=== PATIENT | female | born 1975 | race Caucasian/White ===

== ENCOUNTER → 2016-06-05 | Outpatient (CLI) | payer OTHER ==
[2016-06-05 10:12] LABS: CH 31.9; HCT 41.4 % (34.0-46.0); HDW 2.36; HGB 13.6 gm/dL (11.4-16.0); MCH 31.8 pg (25.0-35.0); MCHC 32.8 g/dL (31.0-37.0); MCV 97.2 fL (80.0-100.0); Mean Platelet Volume 7.3; RBC 4.26 m/uL (3.80-5.40); RDW 13.1 % (11.5-15.5)
[2016-06-05 10:27] LABS: ALT 33 U/L (9-52); AST 23 U/L (14-36); Alkaline Phosphatase 66 U/L (38-126); Anion Gap 10 mmol/L; Blood Urea Nitrogen 10 mg/dL (7-17); Calcium 9.1 mg/dL (8.4-10.2); Carbon Dioxide 23 mmol/L (22-30); Chloride 110 mmol/L (98-107); Glucose 108 mg/dL (74-99); Non-African American GFR(MDRD) >60 (>60 ml/min/1.73 sqM); Potassium 4.3 mmol/L (3.5-5.1); Sodium 143 mmol/L (137-145); Total Bilirubin 0.5 mg/dL (0.2-1.3); Total Protein 6.8 g/dL (6.3-8.2)
[2016-06-05 20:10] LABS: Appearance,CSF Clear
[2016-06-09 13:46] LABS: Lyme Specimen Source Not Provided
[2016-06-10 14:19] LABS: Immunoglobulin G 715 mg/dL (700 - 1600)
== END ==
LOC: LABWHC1 09:19
PROVIDERS: ATTEND Psychiatry & Neurology Neurology
DX: R90.82 White matter disease, unspecified (principal); I65.29 Occlusion and stenosis of unspecified carotid artery
CPT/HCPCS: 36415; 80053; 82040; 82042; 82784; 83873; 83916; 84157; 85027; 87476; 88108; 89050

== ENCOUNTER → 2016-12-27 | Outpatient (CLI) | payer OTHER ==
--- NOTE | 2016-12-29 10:55 | MM ---
Reason for exam: screening (asymptomatic). Last mammogram was performed 1 year and 1 month ago. History: Patient had first child at age 32. Family history of breast cancer in paternal grandmother at age 75. Taking hormonal contraceptives for 6 years beginning at age 32. Physical Findings: A clinical breast exam by your physician is recommended on an annual basis and results should be correlated with mammographic findings. MG Screening Mammo w CAD Bilateral CC and MLO view(s) were taken. Prior study comparison: November 21, 2015, bilateral MG screening mammo w CAD. October 24, 2014, bilateral MG screening mammo w CAD. The breast tissue is heterogeneously dense. This may lower the sensitivity of mammography. Global asymmetry upper outer quadrant right breast is unchanged. No significant changes when compared with prior studies. ASSESSMENT: Negative, BI-RAD 1 RECOMMENDATION: Routine screening mammogram of both breasts in 1 year.
== END | disposition home or self-care (01) ==
LOC: RADMAMWWP 10:34
PROVIDERS: ATTEND Obstetrics & Gynecology
DX: Z12.31 Encounter for screening mammogram for malignant neoplasm of breast (principal)

== ENCOUNTER → 2017-06-23 | Outpatient (CLI) | payer OTHER ==
--- NOTE | 2017-06-23 08:02 | US ---
EXAMINATION TYPE: US abdomen complete DATE OF EXAM: 06/23/2017 COMPARISON: US 2009 CLINICAL HISTORY: R10.84 GENERALIZED ABD PAIN. Epigastric and RUQ pain, gallbladder surgically absent . EXAM MEASUREMENTS: Liver Length: 16.5 cm Gallbladder Wall: Surgically absent cm CBD: 0.4 cm Spleen: 11.3 cm Right Kidney: 11.3 x 4.6 x 5.1 cm Left Kidney: 11.9 x 6.4 x 4.9 cm Pancreas: not visualized due to midline bowel gas Liver: wnl Gallbladder: Surgically absent CBD: wnl Spleen: wnl Right Kidney: No hydronephrosis or masses seen Left Kidney: No hydronephrosis or masses seen Upper IVC: wnl Abd Aorta: wnl The liver is homogenous. The intrahepatic portion of the IVC and proximal abdominal aorta are within normal limits. The spleen is unremarkable. Kidneys are symmetric and free of hydronephrosis. No r enal lesions are seen. IMPRESSION: Nonvisualization of the pancreas and surgical absence of the gallbladder, otherwise unrem arkable abdominal ultrasound.
== END ==
LOC: RADUSWWP 06:43
PROVIDERS: ATTEND Internal Medicine
DX: R10.84 Generalized abdominal pain (principal); Z90.49 Acquired absence of other specified parts of digestive tract
CPT/HCPCS: 76700

== ENCOUNTER → 2018-01-23 | Outpatient (CLI) | payer OTHER ==
--- NOTE | 2018-01-25 13:43 | MM ---
Reason for exam: screening (asymptomatic). Last mammogram was performed 1 year and 1 month ago. History: Patient had first child at age 32. Family history of breast cancer in paternal grandmother at age 75. Taking hormonal contraceptives for 6 years beginning at age 32. Physical Findings: A clinical breast exam by your physician is recommended on an annual basis and results should be correlated with mammographic findings. MG Screening Mammo w CAD Bilateral CC and MLO view(s) were taken. Prior study comparison: December 27, 2016, bilateral MG screening mammo w CAD. November 21, 2015, bilateral MG screening mammo w CAD. The breast tissue is heterogeneously dense. This may lower the sensitivity of mammography. There is no discrete abnormality. No significant changes when compared with prior studies. ASSESSMENT: Negative, BI-RAD 1 RECOMMENDATION: Routine screening mammogram of both breasts in 1 year.
== END | disposition home or self-care (01) ==
LOC: RADMAMWWP 09:37
PROVIDERS: ATTEND Family Medicine
DX: Z12.31 Encounter for screening mammogram for malignant neoplasm of breast (principal)
CPT/HCPCS: 77067

== ENCOUNTER 2018-07-09 18:29 | Inpatient (IN) | payer OTHER ==
[2018-07-09] MEDS ORDERED: SODIUM CHLORIDE 0.9% 500 ML 500 ML IV ONE (18:36)
[2018-07-09 19:09] LABS: Anisocytosis Slight; Hypochromasia Marked; MCH 18.1 pg (25.0-35.0); MCHC 26.8 g/dL (31.0-37.0); MCV 67.4 fL (80.0-100.0); Mean Platelet Volume 9.5; Microcytosis Marked; Platelet Count 194 k/uL (150-450); Poikilocytosis Slight; RBC 2.66 m/uL (3.80-5.40); RDW 19.7 % (11.5-15.5); WBC 4.5 k/uL (3.8-10.6)
[2018-07-09 19:12] LABS: HCT 17.9 % (34.0-46.0); HGB 4.8 gm/dL (11.4-16.0)
[2018-07-09 19:16] LABS: ALT 25 U/L (9-52); AST 18 U/L (14-36); Albumin 3.2 g/dL (3.5-5.0); Alkaline Phosphatase 55 U/L (38-126); Anion Gap 6 mmol/L; Blood Urea Nitrogen 16 mg/dL (7-17); Calcium 8.3 mg/dL (8.4-10.2); Carbon Dioxide 19 mmol/L (22-30); Chloride 113 mmol/L (98-107); Glucose 99 mg/dL (74-99); Potassium 4.1 mmol/L (3.5-5.1); Sodium 138 mmol/L (137-145); Total Bilirubin 0.2 mg/dL (0.2-1.3); Total Protein 5.3 g/dL (6.3-8.2)
[2018-07-09] MEDS ORDERED: PANTOPRAZOLE 40 MG/10 ML VIAL IVP STA (19:29)
--- NOTE | 2018-07-09 19:43 | ED ---
Recheck HPI - General Chief Complaint: Recheck/Abnormal Lab/Rx Stated Complaint: abnormal labs Time Seen by Provider: 07/09/18 18:34 Source: patient Mode of arrival: ambulatory Limitations: no limitations - History of Present Illness Initial Comments: 42-year-old female with no past medical history presenting today for chief complaint of low hemoglobin. Patient states she was sent by primary care provider after obtaining labs for annual physical for low hemoglobin. She states she is unsure of the level. Patient denies any history of recent surgery , heavy vaginal bleeding, rectal bleeding melena. She denies history of peptic ulcer disease. Patient denies history of cancer. Patient states she has felt slightly short of breath, pale, and been experiencing cold intolerance. Patient denies abdominal pain headache, nausea vomiting dizziness.. Patient denies any use of blood thinners. Patient states she did have influenza about 3 weeks ago. Remaining review of systems negative, patient denies any recent fever, chills, shortness of breath, chest pain, back pain, numbness or tingling, dysuria or hematuria, constipation or diarrhea, visual changes, or any other complaints. upon arrival patient appears well no signs acute distress. HR 90 BP within acceptable limits. - Related Data Home Medications Medication Instructions Recorded Confirmed Acetaminophen [Tylenol Arthritis] 650 mg PO DAILY PRN 07/09/18 07/09/18 Azithromycin [Zithromax Z-pack] See Taper PO DIRECTED 07/09/18 07/09/18 Baclofen [Lioresal] 10 mg PO BID 07/09/18 07/09/18 Calcium/Magnesium/Zinc 1 tab PO DAILY 07/09/18 07/09/18 [Yfnwalv-Pbqqkxkgu-Jsgn Tablet] HYDROcodone/APAP 10-325MG [[place] 1.5 tab PO DAILY PRN 07/09/18 07/09/18 10-325] Loratadine [Claritin] 10 mg PO DAILY 07/09/18 07/09/18 Naproxen 500 mg PO BID PRN 07/09/18 07/09/18 Pregabalin [Lyrica] 150 mg PO DAILY 07/09/18 07/09/18 Topiramate [Topamax] 50 mg PO BID 07/09/18 07/09/18 Verapamil HCl [Verapamil ER] 120 mg PO DAILY 07/09/18 07/09/18 medroxyPROGESTERone [Depo-Provera] 150 mg IM Q90D 07/09/18 07/09/18 Allergies Allergy/AdvReac Type Severity Reaction Status Date / Time No Known Allergies Allergy Verified 07/09/18 18:47 Review of Systems ROS Statement: Those systems with pertinent positive or pertinent negative responses have been documented in the HPI. ROS Other: All systems not noted in ROS Statement are negative. Past Medical History Additional Past Medical History / Comment(s): migraines, back pain Past Surgical History: Cholecystectomy Additional Past Surgical History / Comment(s): carpal tunnel, eye Past Psychological History: No Psychological Hx Reported Smoking Status: Never smoker Past Alcohol Use History: Occasional Past Drug Use History: None Reported General Exam - General Exam Comments Initial Comments: General: The patient is awake and alert, in no distress. Appears pale. Eye: +3 mm pupils are equal, round and reactive to light, extra-ocular movements are intact. No nystagmus. There is normal conjunctiva bilaterally. No signs of icterus. Ears, nose, mouth and throat: There are moist mucous membranes and no oral lesions. Pallor of mucous membranes. Neck: The neck is supple, there is no tenderness or JVD. Cardiovascular: There is a regular rate and rhythm. No murmur, rub or gallop is appreciated. Respiratory: Lungs are clear to auscultation, respirations are non-labored, breath sounds are equal. No wheezes, stridor, rales, or rhonchi. Gastrointestinal: Soft, non-distended, non-tender abdomen without masses or organomegaly noted. There is no rebound or guarding present. No CVA tenderness. Bowel sounds are unremarkable. No gross blood on rectal exam. Musculoskeletal: Normal ROM, no tenderness. Strength 5/5. Sensation intact. Radial pulses equal bilaterally 2+. Neurological: A&O x 3. CN II-XII intact, There are no obvious motor or sensory deficits. Coordination appears grossly intact. Speech is normal. Skin: Skin is warm and dry and no rashes or lesions are noted. Psychiatric: Cooperative, appropriate mood & affect, normal judgment. Limitations: no limitations Course Vital Signs 07/09/18 07/09/18 07/09/18 18:30 20:18 20:28 Temperature 98.6 F 98.5 F 98.8 F Pulse Rate 90 79 81 Respiratory 18 16 16 Rate Blood Pressure 139/68 114/68 111/66 O2 Sat by Pulse 100 Oximetry 07/09/18 20:58 Temperature 98.8 F Pulse Rate 86 Respiratory 16 Rate Blood Pressure 120/71 O2 Sat by Pulse Oximetry Medical Decision Making - Medical Decision Making 42-year-old female presenting for low hemoglobin. Patient sent by primary care provider after having labs drawn for annual physical. Patient states she has noticed increasing dyspnea cold intolerance as well as pallor. Patient hemoglobin 4.7. Patient was given 2 units of red blood cells after type and screen. Patient remains hemodynamically stable. There is no obvious source upon history taking for patient's bleeding. Patient denies vaginal bleeding recent surgeries melena or hematochezia. Occult blood negative. Patient denies any source of the pain. Patient denies anticoagulation use. Patient did have history of influenza 3 weeks prior however there is no pancytopenia. At this ti wv patient will be admitted for further evaluation of anemia. At this time source of low hemoglobin is not identified. Hematology oncology was consult and. Dr. Wong accepted admission. Patient was resumed on home medications. Patient was given IV fluids in the emergency department. I had discussed the case attending provider Dr. Alvarez who spoke with Dr. Wong who is agreeable patient care plan as well as admission at this time. - Lab Data Result diagrams: 07/09/18 18:59 07/09/18 18:59 Lab Results 07/09/18 07/09/18 07/09/18 Range/Units 18:51 18:59 18:59 WBC 4.5 (3.8-10.6) k/uL RBC 2.66 L (3.80-5.40) m/uL Hgb 4.8 L* (11.4-16.0) gm/dL Hct 17.9 L* (34.0-46.0) % MCV 67.4 L (80.0-100.0) fL MCH 18.1 L (25.0-35.0) pg MCHC 26.8 L (31.0-37.0) g/dL RDW 19.7 H (11.5-15.5) % Plt Count 194 (150-450) k/uL Neutrophils % ASSET ADMINISTRATOR Neutrophils % (Manual) 71 % Lymphocytes % ASSET ADMINISTRATOR Lymphocytes % (Manual) 14 % Monocytes % ASSET ADMINISTRATOR Monocytes % (Manual) 8 % Eosinophils % ASSET ADMINISTRATOR Eosinophils % (Manual) 7 % Basophils % ASSET ADMINISTRATOR Neutrophils # ASSET ADMINISTRATOR Neutrophils # (Manual) 3.20 (1.3-7.7) k/uL Lymphocytes # ASSET ADMINISTRATOR Lymphocytes # (Manual) 0.63 L (1.0-4.8) k/uL Monocytes # ASSET ADMINISTRATOR Monocytes # (Manual) 0.36 (0-1.0) k/uL Eosinophils # ASSET ADMINISTRATOR Eosinophils # (Manual) 0.32 (0-0.7) k/uL Basophils # ASSET ADMINISTRATOR Nucleated RBCs 0 (0-0) /100 WBC Manual Slide Review Performed Hypochromasia Marked Hypochromasia (manual) Present Poikilocytosis Slight Poikilocytosis (manual Present Anisocytosis Slight Anisocytosis (manual) Present Microcytosis Marked Tear Drop Cells Present PT (9.0-12.0) sec INR (<1.2) APTT (22.0-30.0) sec Sodium 138 (137-145) mmol/L Potassium 4.1 (3.5-5.1) mmol/L Chloride 113 H (98-107) mmol/L Carbon Dioxide 19 L (22-30) mmol/L Anion Gap 6 mmol/L BUN 16 (7-17) mg/dL Creatinine 0.81 (0.52-1.04) mg/dL Est GFR (CKD-EPI)AfAm >90 (>60 ml/min/1.73 sqM) Est GFR (CKD-EPI)NonAf 89 (>60 ml/min/1.73 sqM) Glucose 99 (74-99) mg/dL Calcium 8.3 L (8.4-10.2) mg/dL Total Bilirubin 0.2 (0.2-1.3) mg/dL AST 18 (14-36) U/L ALT 25 (9-52) U/L Alkaline Phosphatase 55 (38-126) U/L Total Protein 5.3 L (6.3-8.2) g/dL Albumin 3.2 L (3.5-5.0) g/dL Stool Occult Blood (Negative) Blood Type A Positive Blood Type Recheck No Antibody Screen NEGATIVE Crossmatch See Detail Spec Expiration Date 07/12/2018 - 233407/09/18 07/09/18 Range/Units 18:59 19:15 WBC (3.8-10.6) k/uL RBC (3.80-5.40) m/uL Hgb (11.4-16.0) gm/dL Hct (34.0-46.0) % MCV (80.0-100.0) fL MCH (25.0-35.0) pg MCHC (31.0-37.0) g/dL RDW (11.5-15.5) % Plt Count (150-450) k/uL Neutrophils % Neutrophils % (Manual) % Lymphocytes % Lymphocytes % (Manual) % Monocytes % Monocytes % (Manual) % Eosinophils % Eosinophils % (Manual) % Basophils % Neutrophils # Neutrophils # (Manual) (1.3-7.7) k/uL Lymphocytes # Lymphocytes # (Manual) (1.0-4.8) k/uL Monocytes # Monocytes # (Manual) (0-1.0) k/uL Eosinophils # Eosinophils # (Manual) (0-0.7) k/uL Basophils # Nucleated RBCs (0-0) /100 WBC Manual Slide Review Hypochromasia Hypochromasia (manual) Poikilocytosis Poikilocytosis (manual Anisocytosis Anisocytosis (manual) Microcytosis Tear Drop Cells PT 10.1 (9.0-12.0) sec INR 0.9 (<1.2) APTT 21.5 L (22.0-30.0) sec Sodium (137-145) mmol/L Potassium (3.5-5.1) mmol/L Chloride (98-107) mmol/L Carbon Dioxide (22-30) mmol/L Anion Gap mmol/L BUN (7-17) mg/dL Creatinine (0.52-1.04) mg/dL Est GFR (CKD-EPI)AfAm (>60 ml/min/1.73 sqM) Est GFR (CKD-EPI)NonAf (>60 ml/min/1.73 sqM) Glucose (74-99) mg/dL Calcium (8.4-10.2) mg/dL Total Bilirubin (0.2-1.3) mg/dL AST (14-36) U/L ALT (9-52) U/L Alkaline Phosphatase (38-126) U/L Total Protein (6.3-8.2) g/dL Albumin (3.5-5.0) g/dL Stool Occult Blood Negative (Negative) Blood Type Blood Type Recheck Antibody Screen Crosswitch Spec Expiration Date Disposition Clinical Impression: Anemia, Hemoglobin low Disposition: HOME SELF-CARE Condition: Stable Is patient prescribed a controlled substance at d/c from ED?: No Referrals: Josue Wong MD [Primary Care Provider] - 1-2 days Time of Disposition: 20:05 Decision to Admit Reason: Admit from EC Decision Date: 07/09/18 Decision Time: 20:05
[2018-07-09] MEDS ORDERED: NALOXONE 0.4 MG/ML 1 ML VIAL IV PRN (20:02)
[2018-07-09 20:14] LABS: INR 0.9 (<1.2); Prothrombin Time 10.1 sec (9.0-12.0)
[2018-07-09] MEDS: SODIUM CHLORIDE 0.9% 1,000 ML IV SCH (20:15)
[2018-07-09 20:18] LABS: Eosinophils # (M) 0.32 k/uL (0-0.7); Lymphocytes # (M) 0.63 k/uL (1.0-4.8); Monocytes # (M) 0.36 k/uL (0-1.0); Neutrophils % (M) 71 %; Nucleated Red Blood Cells 0 /100 WBC (0-0); Total Cells Counted 100
[2018-07-09 20:19] LABS: Anisocytosis (M) Present; Hypochromasia (M) Present; Poikilocytosis (M) Present; Tear Drop Cells Present
[2018-07-09 20:45] LABS: Partial Thromboplastin Time 21.5 sec (22.0-30.0)
[2018-07-09] MEDS ORDERED: HYDROcodone/APAP 10-325MG 1 EACH TAB PO PRN (21:34)
[2018-07-09 23:22] VITALS: BMI 32.1
[2018-07-10 06:43] LABS: Anisocytosis Moderate; Basophils % (A) 1 %; Eosinophils # (A) 0.3 k/uL (0-0.7); Eosinophils % (A) 7 %; HCT 20.8 % (34.0-46.0); Hypochromasia Marked; Lymphocytes # (A) 1.2 k/uL (1.0-4.8); Lymphocytes % (A) 29 %; MCH 21.8 pg (25.0-35.0); Microcytosis Moderate; Monocytes # (A) 0.2 k/uL (0-1.0); Monocytes % (A) 5 %; Neutrophils # (A) 2.3 k/uL (1.3-7.7); Neutrophils % (A) 55 %; Platelet Count 138 k/uL (150-450); Poikilocytosis Marked; RBC 2.77 m/uL (3.80-5.40); RDW 20.1 % (11.5-15.5); WBC 4.2 k/uL (3.8-10.6)
[2018-07-10] MEDS: SODIUM CHLORIDE 0.9% 1,000 ML IV SCH ×2 (06:44→10:13)
[2018-07-10 06:55] LABS: MCV 75.1 fL (80.0-100.0)
[2018-07-10] MEDS ORDERED: PANTOPRAZOLE 40 MG/10 ML VIAL IV SCH (09:00)
[2018-07-10] MEDS ORDERED: LORATADINE 10 MG TAB PO SCH (09:00)
[2018-07-10] MEDS ORDERED: BACLOFEN 10 MG TAB PO SCH (09:00)
[2018-07-10] MEDS ORDERED: VERAPAMIL SR 120 MG TABLET.ER PO SCH (09:00)
[2018-07-10] MEDS ORDERED: AZITHROMYCIN 250 MG TAB PO SCH (09:00)
[2018-07-10 12:21] LABS: Reticulocyte % 2.6 % (0.5-2.0)
[2018-07-10 13:20] VITALS: TEMP 98.3
[2018-07-10 15:14] VITALS: PULSE 67; RESP 14
[2018-07-10 15:15] VITALS: BP 98/58
--- NOTE | 2018-07-10 15:21 | P.PN ---
Progress Note - Text Consult dictated Impression: 1- Profound, minimally symptomatic, microcytic anemia> likely 2nd to chronic iron deficiency > The patient is hemodynamically stable , even at presentation with HGB of 4.8 indicating chronic process 2- Suspect chronic Gi blood loss despite negative stools for OB study 3- Primary Hematologic process not suspected Rec: 1- Discussed iron deficiency anemia with suspected chronic blood loss with patient 2- The patient is stable to be discharged 3- IV iron supplement will be started within few days of discharge 4- Out-patient GI work up will be arranged Answered all questions/concerns D/W Internal medicine team
--- NOTE | 2018-07-10 16:43 | CONS ---
CONSULTATION DATE OF CONSULTATION: 07/10/2018. REASON FOR CONSULTATION: Severe anemia. HISTORY OF ILLNESS: Yenny is a 42-year-old female with no knowledge of prior hematologic abnormalities. She presented to the hospital after she was being told by Dr. Wong's office to report to the emergency room due to severe anemia. 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 The day before she was seen at Dr. Wong's office and CBC revealed a hemoglobin of 4.8. The patient denied any knowledge of prior hematologic abnormality. She has felt very slight fatigue. She denies any obvious blood loss. No melena, hematochezia, gross hematuria or hematemesis. The patient reported having only 1 or 2 menstrual cycles per year due to being on Depo-Provera, mainly to control menstrual cycles and contraception. Upon arrival to the hospital, the patient was found to have a hemoglobin of 4.8, WBC of 4.5, MCV of 67.4, RDW of 19.7, and platelet count 194,000. She was given 2 units of packed red blood cells. Hemoglobin increased to 6.0 today, WBC was 4.2, and platelet count 139,000. Her chemistry was mostly within normal limits. The patient stool for occult blood study was negative. When she was seen today, Yenny again reported feeling well. She denies any chest pain or shortness of breath. Again, no signs of symptom blood loss. She reported being totally asymptomatic. PAST MEDICAL HISTORY: 1. Migraine headaches. 2. Chronic low back pain. 3. Prior history of irregular menstruation, but none recently. CURRENT MEDICATION: Current medications including Bells, baclofen, verapamil, Protonix, and Naprosyn. ALLERGIES: The patient denies any medication allergies. SOCIAL HISTORY: Yenny is a lifetime nonsmoker. Denies any use of alcohol. 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 She has one 9-year-old healthy child. FAMILY HISTORY: Family history was unremarkable for any prior hematologic disorders. PHYSICAL EXAMINATION: On examination, the patient appeared alert and oriented. Skin is warm and dry. Slightly pale, but nonicteric. Hair distribution within normal for age and gender. Blood pressure was 98/62, pulse was 67 and regular, respiratory rate was 14 and not labored. Temperature was 98.3. There were no pathologic cervical supraclavicular, infraclavicular, or axillary lymphadenopathy. Trachea was midline. Chest was clear with good air exchange bilaterally. Heart sounds were normal S1 and S2. There was no S3, rubs, or murmurs auscultated. Abdomen was soft. The liver and spleen were not clinically palpable. No masses tenderness or inguinal lymphadenopathy. Extremities appears to be grossly unremarkable. Range of motion was within normal. No deformity seen. Neurologic examination showed no focal motor or sensory deficits. Cranial nerves II through XII are unremarkable. IMPRESSION: 1. Profound and minimally symptomatic microcytic anemia, strongly suspecting a chronic iron deficiency due to chronic blood loss. The chronicity of her condition obvious with the lack of symptoms, lack of tachycardia at presentation and profound microcytosis which develops over at least 6 to 12 months if not 2 or 3 years. 2. Suspected chronic gastrointestinal blood loss despite negative stool for occult blood study done at the hospital. 3. History of migraine headache and back pain. She was on analgesics including Naprosyn prescribed by Dr. Loya. 4. Primary hematologic disorder is strongly doubtful. RECOMMENDATION: 1. I discussed chronic anemia chronic microcytic iron deficiency anemia with the patient at length. 2. Discussed suspected blood loss, likely chronic GI in origin. 3. I would not recommend any further supportive blood transfusion. 4. The patient is stable to be discharged home. 5. Parenteral iron infusion will be started within 1 or 2 days from discharge. 6. GI workup will be arranged after iron infusion completed. 7. Avoid nonsteroidal antiinflammatories and stop Naprosyn. I answered the patient's questions and concerns to her satisfaction. I will follow the patient after discharge for parenteral iron infusion. Thank you for asking us the privilege to participate in the care of Ms. Bruner. MMODL / IJN: [id number] /
[2018-07-10 17:12] LABS: Folate, Serum 7.8 ng/mL
[2018-07-10 17:18] LABS: Iron Saturation 2.36 (12.00-45.00)
--- NOTE | 2018-07-10 23:18 | P.HPIM ---
History of Present Illness H&P Date: 07/10/18 Chief Complaint: Low hemoglobin Patient is a 42-year-old female with a known history of chronic migraine headaches, chronic back pain and gestational diabetes mellitus came to ER with complaints of low hemoglobin. Patient had recent lab workup done in PCPs office., Was found to have hemoglobin level of 4. Patient was called to go to ER for further evaluation. Otherwise patient denied any complaints of chest pain. Patient does have shortness of breath recently with slightly stairs. Denied any shortness of breath with walking. Denied any hematemesis or melena or hematochezia. No prior history of GI bleed. FOBT is negative. Denied any recent surgery, heavy vaginal bleeding or rectal bleeding. No history of peptic ulcer disease. Patient has been pale looking as per her mother at bedside. Patient says that she had influenza about 3 weeks ago and is also being treated for bronchitis with azithromycin. Denied any fever or chills. No cough or sputum production. No leg swelling. No chest pain. No numbness or tingling. No hematuria or dysuria. No visual changes. Hemoglobin 4.8 on admission. hypochromic. Iron profile showed deficiency with ferritin level II.6 Review of Systems Constitutional: Patient denies any fever or chills . No generalized weakness or weight loss. Abdomen: Patient denied nausea vomiting and diarrhea and abdominal pain. Cardiovascular: Patient denies any chest pain or short of breath no palpitations. Exertional shortness of breath Respiratory: patient denied any cough is from production. No shortness of breath Neurologic: Patient denied any numbness or tingling headache. Musculoskeletal: Patient denies any complaints of joint swelling or deformity. Skin: Negative Psychiatric: Negative Endocrine: No heat or cold intolerance. No recent weight gain. Genitourinary: No dysuria or hematuria. All other 14 point ROS negative except the above Past Medical History Past Medical History: Diabetes Mellitus Additional Past Medical History / Comment(s): migraines, back pain, gestational DM History of Any Multi-Drug Resistant Organisms: None Reported Past Surgical History: Cholecystectomy Additional Past Surgical History / Comment(s): carpal tunnel, eye surgery Past Anesthesia/Blood Transfusion Reactions: Postoperative Nausea & Vomiting (PONV) Past Psychological History: No Psychological Hx Reported Smoking Status: Never smoker Past Alcohol Use History: Occasional Past Drug Use History: None Reported Medications and Allergies Home Medications Medication Instructions Recorded Confirmed Type Acetaminophen [Tylenol Arthritis] 650 mg PO DAILY PRN 07/09/18 07/09/18 History Azithromycin [Zithromax Z-pack] See Taper PO DIRECTED 07/09/18 07/09/18 History Baclofen [Lioresal] 10 mg PO BID 07/09/18 07/09/18 History Calcium/Magnesium/Zinc 1 tab PO DAILY 07/09/18 07/09/18 History [Nebnezb-Utpnfdxbt-Drxw Tablet] HYDROcodone/APAP 10-325MG [[place] 1.5 tab PO DAILY PRN 07/09/18 07/09/18 History 10-325] Loratadine [Claritin] 10 mg PO DAILY 07/09/18 07/09/18 History Pregabalin [Lyrica] 150 mg PO DAILY 07/09/18 07/09/18 History Topiramate [Topamax] 50 mg PO BID 07/09/18 07/09/18 History Verapamil HCl [Verapamil ER] 120 mg PO DAILY 07/09/18 07/09/18 History medroxyPROGESTERone [Depo-Provera] 150 mg IM Q90D 07/09/18 07/09/18 History Allergies Allergy/AdvReac Type Severity Reaction Status Date / Time No Known Allergies Allergy Verified 07/09/18 18:47 Physical Exam Vitals: Vital Signs Temp Pulse Pulse Resp BP BP Pulse Ox 07/10/18 15:13 98.3 F 67 14 98/62 07/10/18 12:00 98.3 F 67 14 98/58 96 07/10/18 11:12 98.3 F 71 12 97/58 07/10/18 10:42 98.3 F 71 12 96/55 07/10/18 10:32 98.6 F 71 14 109/72 07/10/18 08:00 98.3 F 67 14 98/57 97 07/10/18 04:00 98.3 F 70 16 91/50 100 07/10/18 02:54 98.3 F 70 18 91/50 100 07/10/18 00:40 98.3 F 77 16 103/67 97 07/10/18 00:39 98.3 F 77 16 103/67 97 07/10/18 00:09 97.9 F 83 18 107/68 98 07/10/18 00:00 98.3 F 77 16 103/67 97 04/19/19 23:59 98.6 F 86 18 108/65 07/09/18 22:49 98.8 F 85 18 127/75 100 07/09/18 22:40 98.9 F 89 16 118/72 07/09/18 20:58 98.8 F 86 16 120/71 07/09/18 20:28 98.8 F 81 16 111/66 07/09/18 20:18 98.5 F 79 16 114/68 07/09/18 18:30 98.6 F 90 18 139/68 100 Intake and Output 07/10/18 07/10/18 07/10/18 06:59 14:59 22:59 Intake Total 910 1580 Balance 910 1580 Intake: Intake, IV Titration 600 600 Amount Sodium Chloride 0.9% 1, 600 600 000 ml @ 100 mls/hr IV . Q10H [facility] Rx#:[id number] Oral 360 Blood Product 310 620 Rc As-1 Unit 310 [id number] Rc As-3 Unit 310 [id number] Other: Voiding Method Toilet Toilet # Voids 1 Weight 90.1 kg PHYSICAL EXAMINATION: Patient is lying in the bed comfortably, no acute distress, awake alert and oriented.. HEENT: Normocephalic. Neck is supple. Pupils reactive. Conjunctival pallor. Nostrils clear. Oral cavity is moist. Ears reveal no drainage. Neck reveals no JVD, carotid bruits, or thyromegaly. CHEST EXAMINATION: Trachea is central. Symmetrical expansion. Lung barrow clear to auscultation and percussion. CARDIAC: Normal S1, S2 with no gallops. No murmurs ABDOMEN: Soft. Bowel sounds normal. No organomegaly. No abdominal bruits. Extremities: reveal no edema. No clubbing or cyanosis Neurologically awake, alert, oriented x3 with well-coordinated movements. No focal deficits noted Skin: No rash or skin lesions. Psychiatric: Coperative. Nonsuicidal Musculoskeletal: No joint swelling or deformity. Normal range of motion. Results CBC & Chem 7: 07/10/18 05:59 07/09/18 18:59 Labs: Abnormal Lab Results - Last 24 Hours (Table) 07/09/18 07/09/18 07/09/18 Range/Units 18:51 18:59 18:59 RBC 2.66 L (3.80-5.40) m/uL Hgb 4.8 L* (11.4-16.0) gm/dL Hct 17.9 L* (34.0-46.0) % MCV 67.4 L (80.0-100.0) fL MCH 18.1 L (25.0-35.0) pg MCHC 26.8 L (31.0-37.0) g/dL RDW 19.7 H (11.5-15.5) % Plt Count (150-450) k/uL Lymphocytes # (Manual) 0.63 L (1.0-4.8) k/uL Retic Count (0.5-2.0) % APTT (22.0-30.0) sec Chloride 113 H (98-107) mmol/L Carbon Dioxide 19 L (22-30) mmol/L Calcium 8.3 L (8.4-10.2) mg/dL Total Protein 5.3 L (6.3-8.2) g/dL Albumin 3.2 L (3.5-5.0) g/dL Crossmatch See Detail 07/09/18 07/10/18 07/10/18 Range/Units 18:59 05:59 05:59 RBC 2.77 L (3.80-5.40) m/uL Hgb 6.0 L* (11.4-16.0) gm/dL Hct 20.8 L (34.0-46.0) % MCV 75.1 L D (80.0-100.0) fL MCH 21.8 L (25.0-35.0) pg MCHC 29.0 L (31.0-37.0) g/dL RDW 20.1 H (11.5-15.5) % Plt Count 138 L (150-450) k/uL Lymphocytes # (Manual) (1.0-4.8) k/uL Retic Count 2.6 H (0.5-2.0) % APTT 21.5 L (22.0-30.0) sec Chloride (98-107) mmol/L Carbon Dioxide (22-30) mmol/L Calcium (8.4-10.2) mg/dL Total Protein (6.3-8.2) g/dL Albumin (3.5-5.0) g/dL Crossmatch Thrombosis Risk Factor Assmnt - DVT/VTE Prophylaxis DVT/VTE Prophylaxis: Mechanical Prophylaxis ordered - Choose All That Apply Any of the Below Risk Factors Present?: Yes Each Factor Represents 1 point: Age 41-60 years Other Risk Factors: No Other congenital or acquired thrombophilia - If yes, enter type in comment: No Thrombosis Risk Factor Assessment Total Risk Factor Score: 1 Thrombosis Risk Factor Assessment Level: Low Risk Assessment and Plan Assessment: Profound anemia with minimal symptomatic. Hemoglobin 4.8 status post 1 unit PRBC transfusion Microcytic iron deficiency anemia Suspect chronic GI bleed despite negative FOBT Chronic migraine headaches Chronic back pain History of gestational diabetes mellitus Obesity with BMI 32.1 DVT prophylaxis with SCDs And plan: Plan: Patient is status post 1 unit PRBC transfusion. Continue to monitor H&H. Hematology was consulted for evaluation. Patient is iron deficient with low ferritin level. IV iron supplement will be arranged as an outpatient as per rheumatology. Outpatient GI workup and hematology follow-up. Currently patient is hemodynamically stable. Patient wants to be discharged home. Time with Patient: Greater than 30
--- NOTE | 2018-07-10 23:19 | P.DS ---
Providers Date of admission: 07/09/18 22:00 Expected date of discharge: 07/10/18 Attending physician: Josue Wong Consults: 07/09/18 20:02 Consult Physician Routine Consulting Provider: Feng Naqvi Consult Reason/Comments: anemia, HgB 4.7 unknown orgin Do you want consulting provider notified?: Yes, Notify in am Primary care physician: Josue Wong Hospital Course: Discharge diagnosis Profound anemia with minimal symptomatic. Hemoglobin 4.8 status post 1 unit PRBC transfusion Microcytic iron deficiency anemia Suspect chronic GI bleed despite negative FOBT Chronic migraine headaches Chronic back pain History of gestational diabetes mellitus Obesity with BMI 32.1 DVT prophylaxis with SCDs And plan: Hospital course Patient is a 42-year-old female with a known history of chronic migraine headaches, chronic back pain and gestational diabetes mellitus came to ER with complaints of low hemoglobin. Patient had recent lab workup done in PCPs office., Was found to have hemoglobin level of 4. Patient was called to go to ER for further evaluation. Otherwise patient denied any complaints of chest pain. Patient does have shortness of breath recently with slightly stairs. Denied any shortness of breath with walking. Denied any hematemesis or melena or hematochezia. No prior history of GI bleed. FOBT is negative. Denied any recent surgery, heavy vaginal bleeding or rectal bleeding. No history of peptic ulcer disease. Patient has been pale looking as per her mother at bedside. Patient says that she had influenza about 3 weeks ago and is also being treated for bronchitis with azithromycin. Denied any fever or chills. No cough or sputum production. No leg swelling. No chest pain. No numbness or tingling. No hematuria or dysuria. No visual changes. Hemoglobin 4.8 on admission. hypochromic. Iron profile showed deficiency with ferritin level II.6 Patient is status post 1 unit PRBC transfusion. Continued to monitor H&H. Hemoglobin went up to 6.0. Patient denied any complaints of chest pain or shortness of breath. Hematology was consulted for evaluation. Patient is iron deficient with low ferritin level. IV iron supplement will be arranged as an outpatient as per rheumatology. Outpatient GI workup and hematology follow-up. Currently patient is hemodynamically stable. Patient wants to be discharged home. Discharge physical examination was done and vitals reviewed. Vital Signs - 24 hr 07/09/18 07/10/1819 23:59 00:00 00:09 Temperature 98.6 F 98.3 F 97.9 F Pulse Rate 86 83 Pulse Rate [ 77 Pulse Oximetery ] Respiratory 18 16 18 Rate Blood Pressure 108/65 107/68 Blood Pressure 103/67 [Right Arm] O2 Sat by Pulse 97 98 Oximetry 07/10/18 07/10/18 07/10/18 00:39 00:40 02:54 Temperature 98.3 F 98.3 F 98.3 F Pulse Rate 77 77 70 Pulse Rate [ Pulse Oximetery ] Respiratory 16 16 18 Rate Blood Pressure 103/67 103/67 91/50 Blood Pressure [Right Arm] O2 Sat by Pulse 97 97 100 Oximetry 07/10/18 07/10/18 07/10/18 04:00 08:00 10:32 Temperature 98.3 F 98.3 F 98.6 F Pulse Rate 71 Pulse Rate [ 70 67 Pulse Oximetery ] Respiratory 16 14 14 Rate Blood Pressure 109/72 Blood Pressure 91/50 98/57 [Right Arm] O2 Sat by Pulse 100 97 Oximetry 07/10/18 07/10/18 07/10/18 10:42 11:12 12:00 Temperature 98.3 F 98.3 F 98.3 F Pulse Rate 71 71 Pulse Rate [ 67 Pulse Oximetery ] Respiratory 12 12 14 Rate Blood Pressure 96/55 97/58 Blood Pressure 98/58 [Right Arm] O2 Sat by Pulse 96 Oximetry 07/10/18 15:13 Temperature 98.3 F Pulse Rate 67 Pulse Rate [ Pulse Oximetery ] Respiratory 14 Rate Blood Pressure 98/62 Blood Pressure [Right Arm] O2 Sat by Pulse Oximetry Patient Condition at Discharge: Stable Plan - Discharge Summary Discharge Rx Participant: No New Discharge Prescriptions: Continue Acetaminophen [Tylenol Arthritis] 650 mg PO DAILY PRN PRN Reason: Pain medroxyPROGESTERone [Depo-Provera] 150 mg IM Q90D Topiramate [Topamax] 50 mg PO BID Loratadine [Claritin] 10 mg PO DAILY Calcium/Magnesium/Zinc [Fgztulc-Rjnmutbsv-Wyqw Tablet] 1 tab PO DAILY Azithromycin [Zithromax Z-pack] See Taper PO DIRECTED HYDROcodone/APAP 10-325MG [[place] 10-325] 1.5 tab PO DAILY PRN PRN Reason: Pain Baclofen [Lioresal] 10 mg PO BID Verapamil HCl [Verapamil ER] 120 mg PO DAILY Pregabalin [Lyrica] 150 mg PO DAILY Discontinued Naproxen 500 mg PO BID PRN PRN Reason: Pain Discharge Medication List Acetaminophen [Tylenol Arthritis] 650 mg PO DAILY PRN 07/09/18 [History] Azithromycin [Zithromax Z-pack] See Taper PO DIRECTED 07/09/18 [History] Baclofen [Lioresal] 10 mg PO BID 07/09/18 [History] Calcium/Magnesium/Zinc [Pkxsjkw-Djqxbmeqt-Lvwd Tablet] 1 tab PO DAILY 07/09/18 [History] HYDROcodone/APAP 10-325MG [[place] 10-325] 1.5 tab PO DAILY PRN 07/09/18 [History] Loratadine [Claritin] 10 mg PO DAILY 07/09/18 [History] Pregabalin [Lyrica] 150 mg PO DAILY 07/09/18 [History] Topiramate [Topamax] 50 mg PO BID 07/09/18 [History] Verapamil HCl [Verapamil ER] 120 mg PO DAILY 07/09/18 [History] medroxyPROGESTERone [Depo-Provera] 150 mg IM Q90D 07/09/18 [History] Follow up Appointment(s)/Referral(s): Josue Wong MD [Primary Care Provider] - 1-2 days (please call the office on Thursday for an appointment) Markus Swan MD [STAFF PHYSICIAN] - 1 Week (please call the office Thursday for appointment) Patient Instructions/Handouts: Iron Rich Diet (DC), Anemia (DC) Discharge Disposition: HOME SELF-CARE
[2018-07-11] MEDS ORDERED: PANTOPRAZOLE 40 MG TABLET PO SCH (09:00)
== END 2018-07-10 16:41 | disposition home or self-care (01) | DRG 812 ==
LOC: EC 18:29 → 3SCARD 22:00
PROVIDERS: ADMIT Family Medicine; ATTEND Family Medicine
PROC: 30233N1 Transfusion of Nonautologous Red Blood Cells into Peripheral Vein, Percutaneous Approach (ICD-10-PCS; principal; 2018-07-09)
DX: D50.0 Iron deficiency anemia secondary to blood loss (chronic) (principal); K92.2 Gastrointestinal hemorrhage, unspecified; E66.9 Obesity, unspecified; G43.909 Migraine, unspecified, not intractable, without status migrainosus; G89.29 Other chronic pain; M54.5 Low back pain; Z68.32 Body mass index [BMI] 32.0-32.9, adult; Z79.899 Other long term (current) drug therapy; Z86.32 Personal history of gestational diabetes; Z90.49 Acquired absence of other specified parts of digestive tract
CPT/HCPCS: 36415; 80053; 82272; 82607; 82728; 82746; 83540; 83550; 83615; 85025; 85045; 85610; 85730; 86850; 86900; 86901; 86920; 96361; 96374; 99284

== ENCOUNTER 2018-08-13 11:30 | Day surgery (SDC) | payer OTHER ==
[2018-08-10 14:18] VITALS: BMI 32.4
[~2018-08-13 11:30] MED LIST: LACTATED RINGERS 1,000 ML IV SCH
[2018-08-13 11:46] VITALS: RESP 16; TEMP 98.2
[2018-08-13] MEDS ORDERED: LIDOCAINE 1% 20 ML VIAL (10MG/ML) FOR IV START INTRADERMA ONE (11:51)
[2018-08-13] MEDS ORDERED: PROPOFOL 10 MG/ML 20 ML VIAL IV ONE (12:21)
[2018-08-13] MEDS ORDERED: MIDAZOLAM 2 MG/2 ML VIAL ONE (12:21)
[2018-08-13] MEDS ORDERED: fentaNYL (PF) 50 MCG/ML 2 ML AMP ONE (12:21)
[2018-08-13] MEDS ORDERED: LIDOCAINE 1% INJ 10MG/ML (20 ML MDV) ONE (12:21)
--- NOTE | 2018-08-13 12:55 | P.PCN ---
Date of Procedure: 08/13/18 Procedure(s) Performed: Brief history: Patient is a pleasant 42-year-old white female, scheduled for an elective upper endoscopy as well as colonoscopy as a part of evaluation of severe anemia. She was recently noted to have a hemoglobin of 4 and hence transfusion. Denies any GI symptoms. Procedure performed: Esophagogastroduodenoscopy with biopsy Colonoscopy Preoperative diagnosis: Severe iron deficiency anemia Anesthesia: MAC Procedure: After informed consent was obtained from the patient was brought into the endoscopy unit and IV sedation was administered by anesthesia under continuous monitoring. Initially upper endoscopy was done. The Olympus GF 160 video endoscope was inserted inserted into the mouth and esophagus intubated without any difficulty and was gradually advanced into the stomach and duodenum and carefully examined. The bulb and second part of the duodenum had scalloping of the mucosa with some positivity of the duodenal folds suspicious for celiac disease and multiple biopsies were done from this area. The scope was then withdrawn into the stomach adequately insufflated with air and upon careful examination the antrum had mild gastritis and biopsies were done from this area. The body, cardia and fundus appeared normal. The scope was then withdrawn into the esophagus. The GE junction was located at 40 cm to the incisors. It appeared regular with no erythema erosions or ulcerations. Rest of the esophagus appeared normal. Patient tolerated the procedure well. At this time the patient continued to remain sedation. Initial digital rectal examination was normal. Olympus CF 160 video colonoscope was then inserted into the rectum and gradually advanced to the cecum without any difficulty. Careful examination was performed as the scope was gradually being withdrawn. The prep was poor in several areas of the colon.rrigation was performed. Visualized portions of the cecum, ascending colon, transverse colon, descending colon, sigmoid colon and rectum appeared normal. Retroflexion was performed in the rectum and no lesions were noted. Patient tolerated the procedure well. Impression: 1. Upper endoscopy revealed scalloping of the duodenal mucosa suspicious for celiac disease and mild antral gastritis 2. Colonoscopy was essentially within normal limits with no evidence of colitis or colorectal neoplasia Recommendations: Findings of this examination were discussed with the patient as well as a family. She was advised to follow with the biopsy results. celiac panel was requested today. She'll be seen in office in 2 weeks.
[2018-08-13] MEDS ORDERED: ACETAMINOPHEN TAB 325 MG TAB PO ONE (13:21)
[2018-08-13 13:43] VITALS: BP 127/78; PULSE 67
[2018-08-13 14:00] LABS: Anisocytosis Moderate; Basophils % (A) 1 %; Eosinophils # (A) 0.1 k/uL (0-0.7); Eosinophils % (A) 2 %; HCT 36.1 % (34.0-46.0); Hypochromasia Marked; Lymphocytes # (A) 0.8 k/uL (1.0-4.8); Lymphocytes % (A) 14 %; MCH 27.8 pg (25.0-35.0); MCHC 31.9 g/dL (31.0-37.0); Mean Platelet Volume 7.4; Microcytosis Slight; Monocytes # (A) 0.3 k/uL (0-1.0); Monocytes % (A) 5 %; Neutrophils # (A) 4.5 k/uL (1.3-7.7); Neutrophils % (A) 78 %; Platelet Count 157 k/uL (150-450); Poikilocytosis Slight; RBC 4.15 m/uL (3.80-5.40); RDW 23.5 % (11.5-15.5); WBC 5.8 k/uL (3.8-10.6)
[2018-08-13 14:01] LABS: HGB 11.5 gm/dL (11.4-16.0); MCV 87.1 fL (80.0-100.0)
[2018-08-13 21:41] LABS: Gliadin AB IgA, Unit 15.5 U/mL
== END 2018-08-13 13:50 | disposition home or self-care (01) ==
LOC: ORWHC2ENDO 11:30
PROVIDERS: ATTEND Internal Medicine Gastroenterology
DX: K29.50 Unspecified chronic gastritis without bleeding (principal); K29.80 Duodenitis without bleeding; D50.9 Iron deficiency anemia, unspecified; K21.9 Gastro-esophageal reflux disease without esophagitis; G43.909 Migraine, unspecified, not intractable, without status migrainosus; Z79.3 Long term (current) use of hormonal contraceptives; Z79.891 Long term (current) use of opiate analgesic; Z79.899 Other long term (current) drug therapy
CPT/HCPCS: 81025; 88305; 85025; 83516 ×4; 45378; 43239; J2250; J2001; J3010; J2704

== ENCOUNTER → 2019-04-01 | Outpatient (CLI) | payer BC ==
--- NOTE | 2019-04-01 13:57 | MM ---
Reason for exam: screening (asymptomatic). Last mammogram was performed 1 year and 2 months ago. History: Patient had first child at age 32. Family history of breast cancer in paternal grandmother at age 75. Taking hormonal contraceptives for 10 years beginning at age 32. Physical Findings: A clinical breast exam by your physician is recommended on an annual basis and results should be correlated with mammographic findings. MG Screening Mammo w CAD Bilateral CC and MLO view(s) were taken. Prior study comparison: January 23, 2018, bilateral MG screening mammo w CAD. December 27, 2016, bilateral MG screening mammo w CAD. The breast tissue is heterogeneously dense. This may lower the sensitivity of mammography. There are benign appearing round calcifications bilaterally. There is no discrete abnormality. ASSESSMENT: Benign, BI-RAD 2 RECOMMENDATION: Routine screening mammogram of both breasts in 1 year.
== END | disposition home or self-care (01) ==
LOC: RADMAMWWP 08:32
PROVIDERS: ATTEND Family Medicine
DX: Z12.31 Encounter for screening mammogram for malignant neoplasm of breast (principal)
CPT/HCPCS: 77067

== ENCOUNTER → 2021-07-04 | Outpatient (CLI) | payer BC ==
--- NOTE | 2021-07-10 09:34 | MM ---
Reason for exam: screening (asymptomatic). Last mammogram was performed 2 years and 3 months ago. History: Patient had first child at age 32. Family history of breast cancer in paternal grandmother at age 75. Taking hormonal contraceptives for 10 years beginning at age 32. Physical Findings: A clinical breast exam by your physician is recommended on an annual basis and results should be correlated with mammographic findings. MG Screening Mammo w CAD Bilateral CC and MLO view(s) were taken. Prior study comparison: April 01, 2019, bilateral MG screening mammo w CAD. January 23, 2018, bilateral MG screening mammo w CAD. There are scattered fibroglandular densities. No significant changes when compared with prior studies. ASSESSMENT: Benign, BI-RAD 2 RECOMMENDATION: Routine screening mammogram of both breasts in 1 year.
== END | disposition home or self-care (01) ==
LOC: RADMAMWWP 07:57
PROVIDERS: ATTEND Obstetrics & Gynecology
DX: Z12.31 Encounter for screening mammogram for malignant neoplasm of breast (principal); Z80.3 Family history of malignant neoplasm of breast
CPT/HCPCS: 77067

== ENCOUNTER → 2023-04-10 | Outpatient (CLI) | payer OTHER ==
--- NOTE | 2023-04-10 11:09 | XR ---
EXAM TYPE: LUMBAR SPINE X RAY SERIES COMPARISON: NONE HISTORY: Pain TECHNIQUE: 4 views are submitted. FINDINGS: Alignment is anatomic. The pedicles are intact. The transverse processes are intact. Grade 1 angelia listhesis L3-4 and L4-5. There is facet arthropathy lower lumbar spine. Mild degenerative disc diseas e involving the lower lumbar spine. No compression deformities. Surgical clips in the right upper delfin drant. IMPRESSION: 1. Multilevel degenerative disc disease and facet arthropathy. Grade 1 anterolisthesis L3-4 and L4-L5 .
--- NOTE | 2023-04-10 11:10 | XR ---
EXAMINATION TYPE: XR pelvis AP view DATE OF EXAM: 04/10/2023 COMPARISON: NONE HISTORY: Pain The osseous structures are intact and the joint spaces are preserved. No acute fracture is seen. Vi sualized bowel gas pattern is nonspecific. Calcification along the lateral margin of the right aceta bulum can be associated with chronic acetabular labral tear. Vascular phleboliths within the pelvis. IMPRESSION: 1. No acute fracture.
--- NOTE | 2023-04-10 11:12 | XR ---
EXAMINATION TYPE: XR wrist complete LT DATE OF EXAM: 04/10/2023 COMPARISON: NONE HISTORY: Pain TECHNIQUE: Four views submitted. FINDINGS: The osseous structures are intact. The joint spaces are preserved and there is no acute fracture or dislocation. IMPRESSION: 1. No definite acute fracture or dislocation if symptoms persist, follow-up study in 7 to 10 days wo uld be suggested
== END | disposition home or self-care (01) ==
LOC: RADXRMAIN 10:36
PROVIDERS: ATTEND Emergency Medicine
DX: M51.36 Other intervertebral disc degeneration, lumbar region (principal); M47.816 Spondylosis without myelopathy or radiculopathy, lumbar region; M43.16 Spondylolisthesis, lumbar region; S30.0XXA Contusion of lower back and pelvis, initial encounter; S60.212A Contusion of left wrist, initial encounter; X58.XXXA Exposure to other specified factors, initial encounter
CPT/HCPCS: 72100; 72170

== ENCOUNTER → 2023-04-13 | Outpatient (CLI) | payer OTHER ==
--- NOTE | 2023-04-13 17:09 | XR ---
EXAMINATION TYPE: XR elbow complete LT DATE OF EXAM: 04/13/2023 4:58 PM CLINICAL INDICATION:Female, 47 years old with history of M25.522 PAIN IN LEFT ELBOW; COMPARISON: None TECHNIQUE: XR elbow complete LT; elbow was examined in AP, lateral, and oblique projections. FINDINGS: No evidence of any acute osseous pathology, joint dislocation, or soft tissue swelling is n oted. No evidence of joint effusion is present. Osteophyte formation of the medial and lateral epico ndyles, and extensor/flexor origins. IMPRESSION: 1. No evidence of acute fracture. 2. Evidence of tendinosis of the common extensor and flexor origins.
== END | disposition home or self-care (01) ==
LOC: RADXRMAIN 16:36
PROVIDERS: ATTEND Emergency Medicine
DX: M25.522 Pain in left elbow (principal)

== ENCOUNTER → 2023-04-21 | Outpatient (CLI) | payer OTHER ==
--- NOTE | 2023-04-21 09:50 | XR ---
EXAMINATION TYPE: XR wrist complete LT DATE OF EXAM: 04/21/2023 9:40 AM CLINICAL INDICATION:Female, 47 years old with history of S60.212D L wrist contusion; [facility] COMPARISON: 04/10/2023 TECHNIQUE: XR wrist complete LT; examined in the Frontal, navicular, lateral, and oblique. FINDINGS: No acute osseous pathology, joint dislocation, or joint effusion. No evidence of any soft tissue swelling is seen. IMPRESSION: No acute osseous pathology.
== END | disposition home or self-care (01) ==
LOC: RADXRMAIN 09:25
PROVIDERS: ATTEND Emergency Medicine
DX: S60.212D Contusion of left wrist, subsequent encounter (principal); X58.XXXD Exposure to other specified factors, subsequent encounter

== ENCOUNTER → 2023-04-29 | Outpatient (CLI) | payer OTHER ==
--- NOTE | 2023-05-06 00:35 | MR ---
EXAM: MR wrist LT wo con DATE OF EXAM: 04/29/2023 COMPARISON: Left wrist radiographs 04/10/2013 and 04/21/2023 HISTORY: Left wrist pain post fall TECHNIQUE: Multiplanar, multisequence images of the left wrist were acquired without contrast. FINDINGS: BONES/JOINTS: Normal bone marrow signal. Normal alignment. No ulnar variance. Distal radioulnar joint is normal. No joint effusion. LIGAMENTS: Scapholunate and lunotriquetral ligaments are normal. Extrinsic carpal ligaments are jennifer l. Triangular fibrocartilaginous complex is normal. TENDONS: Flexor tendons are normal. Short segment intrasubstance tear extensor carpi ulnaris tendon a t the level of the ulnar styloid. The remainder of the extensor tendons are normal.. SOFT TISSUES: Carpal tunnel is normal. Guyon's canal is normal. No bursal distention. No fluid collec tion. NEUROVASCULAR: The median nerve is normal in size, signal, and location. The ulnar nerve is normal in size, signal, and location. Vascular structures are normal OTHER: Normal. IMPRESSION: Short segment intrasubstance tear of the ECU.
== END | disposition home or self-care (01) ==
LOC: RADMRIMAIN 11:33
PROVIDERS: ATTEND Emergency Medicine
DX: S60.212D Contusion of left wrist, subsequent encounter (principal); S30.0XXD Contusion of lower back and pelvis, subsequent encounter; M25.522 Pain in left elbow